=== PATIENT | female | born 1960 | race Caucasian/White ===

== ENCOUNTER → 2020-10-05 | Outpatient (CLI) | payer OTHER ==
--- NOTE | 2020-10-05 13:58 | RAD ---
XR KNEE_AP BILAT STANDING, XR KNEE 1-2 VIEWS 10/05/2020 9:32 AM INDICATION: Pain COMPARISON: None available TECHNIQUE: 3 views of the right and 3 views the left knee are provided. FINDINGS/ IMPRESSION: There is no acute fracture or dislocation. Mild medial femorotibial joint space narrowing is noted, l eft greater than right compatible with mild osteoarthrosis. No significant knee joint effusion. There is moderate bilateral patellofemoral osteoarthrosis with joint space narrowing and patellar osteophy tosis.. Bone mineralization is within normal limits. Regional soft tissues are within normal limits. There is no soft tissue gas or osseous erosion. No radiopaque foreign body. Electronically signed by: Denise Cheema MD (10/05/2020 1:55 PM) [id number]
== END ==
LOC: DXRAD 09:24
PROVIDERS: ATTEND Physician Assistant
DX: M17.0 Bilateral primary osteoarthritis of knee (principal); M25.762 Osteophyte, left knee; M25.761 Osteophyte, right knee
CPT/HCPCS: 73560; 73565

== ENCOUNTER → 2022-03-14 | Outpatient (CLI) | payer OTHER ==
--- NOTE | 2022-03-14 11:12 | RAD ---
XR KNEE_AP BILAT STANDING, XR KNEE 3 VIEWS_RT History: Reason: CHRONIC RIGHT KNEE PAIN / Spl. Instructions: / History: Technique: Standing AP view bilateral knees with 3 additional views of the right knee. Comparison: None. Findings: Right knee: Moderate knee degenerative changes most prominent within the medial and patellofemoral co mpartment joint space narrowing and marginal osteophyte formation. No dislocation. No acute fracture. Minimal knee joint effusion. Mild left knee DJD on AP view. Impression: 1. Moderate right knee DJD. Electronically signed by: Porfirio Valerio DO (03/14/2022 11:09 AM) [id number]
== END ==
LOC: RAD 09:54
PROVIDERS: ATTEND Physician Assistant
DX: M17.11 Unilateral primary osteoarthritis, right knee (principal); M25.861 Other specified joint disorders, right knee
CPT/HCPCS: 73562; 73565